=== PATIENT | female | born 1980 | race Caucasian/White ===

== ENCOUNTER 2016-07-08 20:46 | Emergency (ER) | payer OTHER ==
[2016-07-08] MEDS ORDERED: ALPRAZolam 0.25 MG TABLET PO ONE (21:10)
[2016-07-08] MEDS ORDERED: ALPRAZolam 0.25 MG TABLET ONE (21:15)
--- NOTE | 2016-07-08 21:22 | ERNOTE ---
Psychological HPI - General Chief Complaint: Psychiatric Problem Source: patient, police Exam Limitations: no limitations - Immun/Allergies/Home Medications Allergies/Adverse Reactions: Allergies acetaminophen [From Midrin] Allergy (Intermediate, Verified 07/08/16 20:56) GI upset codeine Allergy (Intermediate, Verified 07/08/16 20:56) rash dichloralphenazone [From Midrin] Allergy (Intermediate, Verified 07/08/16 20:56) GI upset diphenhydramine HCl [From Benadryl] Allergy (Intermediate, Verified 07/08/16 20: 56) Shortness of Breath isometheptene mucate [From Midrin] Allergy (Intermediate, Verified 07/08/16 20: 56) GI upset Home Medications: HOME MEDICATIONS NK [No Home Medication] 07/08/16 [Last Taken Unknown] - History of Present Illness Narrative: Patient has a history of paranoid schizophrenia and eloped form [facility] on May 02 2016. She was apprehended by the police today and is court ordered to be brought to [facility] for evaluation. Patient states that she hears voices of demons and angles (does not want to say what they are telling her). She denies any suicidal or homicidal ideation. While on the run she bought xanax off the street, has not been on any other psych medications. She also admits to using opiates and meth, the latter IV about two weeks, denies using THC or ETOH Time Seen by Provider: 07/08/16 20:59 Arrived by: police Review of Systems - Review of Systems Constitutional: Absent: fever Respiratory: Absent: shortness of breath Cardiology: Absent: chest pain Gastrointestinal/Abdominal: Absent: nausea, abdominal pain Neurological: Present: anxiety. Absent: headache - Patient's Past Medical History Patient History - Medical: Anxiety, Depression, Migraines, Other - paranoid schizophrenia Patient History - Cardiac/Respiratory: Asthma Patient History - Cancer: No Hx of Cancer Patient History - Surgical Procedures: No surgical history - Social History Living Situations: home Smoking Status: Current every day smoker Have you smoked in the past 12 months: Yes Alcohol Use: none Drug Use: benzodiazepine, cocaine, heroin, marijuana, meth, other Physical Exam - Physical Exam General Appearance: Present: wd/wn, alert, no apparent distress Eye Exam: Normal inspection: bilateral, PERRL: bilateral Respiratory: Present: no respiratory distress, normal breath sounds, lungs clear Cardiovascular/Chest: Present: regular rate, rhythm Gastrointestinal/Abdominal: Present: nontender, soft Extremity Exam: Present: other - no sign of injury Neurological Exam: Present: alert, oriented, other - avoids eye contact, Skin Exam: Present: normal color, warm/dry ED Progress - Results and Orders Patient's Lab Results:: I have reviewed the patient's lab results. - Vital Signs Patient's Vital Signs:: I have reviewed the patient's vital signs. Vital Signs: Vital Signs 07/08/16 20:51 Temperature 36.4 C L Pulse Rate 100 Respiratory 14 Rate Blood Pressure 123/86 O2 Sat by Pulse 98 Oximetry - Progress/Reassessment Chief Complaint: Psychiatric Problem Progress Note-Subjective: 07/08/16 21:55 patient anxious about lab draw, tolerated with coaching 07/09/16 06:27 patient resting, when talked to opens her eyes and asks for more xanax Departure Clinical Impression: Paranoid schizophrenia - Departure Disposition: Other health care facility Condition: Fair Referrals: Riley Virgen MD [Primary Care Provider] -
[2016-07-08 21:56] LABS: Hematocrit 39.5 % (37.0-47.0); Hemoglobin 12.9 gm/dL (12.5-16.0); Mean Cell Volume 91.4 fl (78-100); Mean Corpuscular Hemoglobin 29.9 pg (27-31); Mean Corpuscular Hgb Conc 32.7 g/dl (32-36); Mean Platelet Volume 10.4 fl (6.0-9.5); Neutrophil % 52.3 % (42-75.0); Platelet Count 143 K/mm3 (150-450); Red Blood Count 4.32 M/mm3 (4.2-5.4); Red Cell Distribution Width 12.3 % (11.5-14.0); White Blood Count 5.7 K/mm3 (4.0-10.5)
[2016-07-08 22:19] LABS: ALT 18 U/L (19-67); AST 10 U/L (0-48); Alkaline Phosphatase * 57 U/L (50-170); BUN/Creatinine Ratio 12.1 (9.0-21.6); Bilirubin, Total 0.4 mg/dL (0.0-1.1); Blood Urea Nitrogen 12 mg/dL (3-23); Ca. Corrected For Albumin 8.8 mg/dL (8.4-10.2); Calcium * 9.1 mg/dL (7.9-10.9); Carbon Dioxide 29.6 mmol/L (24-32.6); Chloride 105 mmol/L (97-106); Glucose * 80 mg/dL (70-110); Potassium 3.6 mmol/L (3.4-4.6); Salicylate Less than 2.8 mg/dL (2.8-20.0); Sodium 142 mmol/L (132-142); TSH * 1.033 uIU/mL (0.358-3.74); Total Protein 7.5 gm/dL (6.2-8.2)
[2016-07-09 00:13] LABS: Urine Bilirubin Negative (NEGATIVE); Urine Blood 25 /ul (NEGATIVE); Urine Ketone Negative (NEGATIVE); Urine Nitrite Negative (NEGATIVE); Urine Protein Negative (NEGATIVE); Urine Specific Gravity >=1.030 SP.GR. (1.005-1.010); Urine Urobilinogen Normal (NORMAL); Urine pH 5.5 pH (5.0-7.0)
[2016-07-09 00:21] LABS: Cocaine Ur Negative (NEGATIVE); Urine Barbiturate Negative (NEGATIVE); Urine Opiates Negative (NEGATIVE); Urine PCP Negative (NEGATIVE); Urine THC Negative (NEGATIVE)
[2016-07-09 00:27] LABS: Urine Benzodiazepines Positive (NEGATIVE)
[2016-07-09 00:28] LABS: Urine Appearance Clear; Urine Bacteria None Seen; Urine Color Yellow; Urine RBC 0-5 /hpf (0-5); Urine WBC 0-5 /hpf (0-5)
[2016-07-09] MEDS ORDERED: ALPRAZolam 0.25 MG TABLET PO ONE (05:46)
[2016-07-09] MEDS ORDERED: ALPRAZolam 0.25 MG TABLET ONE (05:47)
[2016-07-09 07:28] VITALS: BP 94/58
== END 2016-07-09 07:28 | disposition short-term general hospital (02) ==
LOC: ER 20:46
DX: F20.0 Paranoid schizophrenia (principal); F17.210 Nicotine dependence, cigarettes, uncomplicated
CPT/HCPCS: 36415; 80053; 81001; 84443; 84703; 85025; 99283; G0479; G0480; G0481

== ENCOUNTER 2016-11-08 21:12 | Emergency (ER) | payer OTHER ==
--- NOTE | 2016-11-08 22:03 | ERNOTE ---
<ValerieKennedi - Last Filed: 11/09/16 06:29> Psychological HPI - General Chief Complaint: Psychiatric Problem Source: Reports: patient Exam Limitations: Reports: clinical condition - pt is upset and not the best historian - Immun/Allergies/Home Medications Allergies/Adverse Reactions: Allergies acetaminophen [From Midrin] Allergy (Intermediate, Verified 07/08/16 20:56) GI upset codeine Allergy (Intermediate, Verified 07/08/16 20:56) rash dichloralphenazone [From Midrin] Allergy (Intermediate, Verified 07/08/16 20:56) GI upset diphenhydramine HCl [From Benadryl] Allergy (Intermediate, Verified 07/08/16 20: 56) Shortness of Breath isometheptene mucate [From Midrin] Allergy (Intermediate, Verified 07/08/16 20: 56) GI upset Home Medications: HOME MEDICATIONS ALPRAZolam [Xanax] 1 mg PO TID PRN 11/08/16 [Last Taken Unknown] hydrOXYzine PAMOATE [Vistaril] 50 mg PO Q4H PRN 11/08/16 [Last Taken Unknown] - History of Present Illness Narrative: pt is not forthcoming with information but what this examiner can deduct is that pt has been court committed based on Dr. Price for deterioration of mental status/health and needed inpatient care. Patient is also a habitual meth user, supposed to be on Xanax and vistarel and called her doctor stating that her meds had been stolen. Time Seen by Provider: 11/08/16 22:01 Review of Systems - Narrative Narrative: pt refuses to speak with me and ROS is impossible to get. She does state that she does not have pain anywhere. - Patient's Past Medical History Patient History - Medical: Anxiety, Depression, Migraines, Other Patient History - Cardiac/Respiratory: No pertinent hx Patient History - Cancer: No Hx of Cancer Patient History - Surgical Procedures: No surgical history Patient History - Other: None LMP (females 10-50): 3 weeks LMP (Calendar): 07/02/15 - Social History Living Situations: alone Abuse History: Hx of Substance Use, Hx -Substance Use Tx Psych History: Hx of Anxiety, Hx of Depression, Hx of Bipolar Disorder, Hx of Suicide Attempt Smoking Status: Current every day smoker Patient requests Smoking Cessation Consult: No Initiate information on Smoking Cessation: No Alcohol Use: none Drug Use: benzodiazepine, cocaine, heroin, marijuana, meth, other - Immunizations Immunizations Up to Date: No Hx Pneumococcal Vaccination: No History of Influenza Vaccine: No Physical Exam - Physical Exam General Appearance: Present: wd/wn, alert, no apparent distress - she does not allow me to examiner her further. ED Progress - Results and Orders Patient's Lab Results:: I have reviewed the patient's lab results. - pt's urine is positive for meth and benzo's. pt REFUSES to allow us to do blood test on her - Vital Signs Patient's Vital Signs:: I have reviewed the patient's vital signs. Vital Signs: Vital Signs 11/08/16 21:18 Temperature 37.8 C H Pulse Rate 112 H Respiratory 16 Rate Blood Pressure 138/49 O2 Sat by Pulse 99 Oximetry - Progress/Reassessment Chief Complaint: Psychiatric Problem - Transfer of Care Physician Sign Out: Kennedi Padilla Receiving Physician: Edis Galan Pending Results: Physician/consult arrival Expected Disposition: Transfer - placement Departure Clinical Impression: Drug abuse and dependence, Involuntary commitment - Departure Condition: Undetermined Additional Instructions: PT ELOPED FROM A COURT HOLD. POLICE ARE AWARE. <Edis Galan - Last Filed: 11/09/16 11:39> Psychological HPI - Date Date of Service: 11/09/16 ED Progress - Transfer of Care Additional Notes: THOUGH I INSTRUCTED THAT HER MOTHER NOT COME BACK INTO THE ER SHE HAS BEEN A PERSON MENTIONED IN THE PT'S. PAST ARGUMENTS/DRAMA/EVENTS. THE MOTHER CAME BACK INTO THE ER ANY WAY AFTER THE PT CALLED HER ON HER CELL PHONE THAT SHE WAS ALLOWED TO KEEP. WHEN THE MOTHER TRIED TO FORCE HER SELF INTO THE ER THE PT FORCED HER SELF OUT OF THE ER YELLING AND STRIKING OUT AT SECURITY. . THE SECURITY TRIED TO HAVE HER STAY BUT SHE RAN AWAY INTO THE PARKING LOT AND DISAPPEARED. THE POLICE WERE CALLED TO TRY TO FIND HER BUT WERE UNABLE.
--- OUTSIDE RECORDS SUMMARY | 2016-11-08 22:08 | XMS REPORT | Continuity of Care Document ---
:1980 Author Organization [facility] [place] [address] Care Team Providers Name Role Phone Provider, None Per Patient Primary Care Provider Unavailable Source Comments This disclosure is being made pursuant to the [employer] program and maynot contain all information available regarding this patient.[facility] Active Allergies and Adverse Reactions Allergen Noted Date Severity Reactions Comments Keshia 12/11/2015 High Anaphylaxis Current Medications Be aware that medications may not be up to date as of this document. Alwaysverify current medications with the patient. Prescription Sig. Disp. Refills Start Date End Date Status ALPRAZolam (XANAX) 1 MG Take 1 tablet by 60 tablet 1 01/05/2016 Active tablet mouth 2 (two) times daily. benztropine mesylate Inject 2 mLs into 10 mL 1 01/05/2016 Active (COGENTIN) 1 MG/ML the muscle every injection 6 (six) hours as needed (Dystonia). paliperidone (INVEGA) 6 Take 2 tablets by 60 tablet 1 01/05/2016 Active MG 24 hr tablet mouth daily with supper. traZODone (DESYREL) 100 Take 2 tablets by 60 tablet 1 01/05/2016 Active MG tablet mouth nightly as needed for Sleep. traZODone (DESYREL) 100 Take 1 tablet by 30 tablet 1 01/05/2016 Active MG tablet mouth daily as needed. Active Problems Problem Noted Date Schizophrenia, chronic with acute exacerbation (HCC) 12/12/2015 Social History Tobacco Use Types Packs/Day Years Used Date Never Assessed Last Filed Vital Signs Vital Sign Reading Time Taken Blood Pressure 88/67 01/06/2016 8:57 AM CDT Pulse 93 01/06/2016 8:57 AM CDT Temperature 34.4 C (93.9 F) 01/06/2016 8:57 AM CDT Respiratory Rate 16 01/06/2016 8:57 AM CDT Height 1.575 m (5' 2.01") 12/11/2015 10:00 PM CDT Weight 57.652 kg (127 lb 1.6 oz) 01/04/2016 4:00 PM CDT Body Mass Index 23.24 01/04/2016 4:00 PM CDT Oxygen Saturation - - Plan of Care Health Maintenance Due Date Last Done Comments Tetanus/Pertussis (1 - Tdap) 2001 Pap Smear 10/09/2003 Retired-INFLUENZA VACCINE 02/26/2016 Results from Last 3 Months Not on file
--- OUTSIDE RECORDS SUMMARY | 2016-11-08 22:08 | XMS REPORT | Continuity of Care Document ---
:1980 Author Organization [facility] ([facility]) Address [address] [place] [address] Phone [phone] Care Team Providers Name Role Phone Riley Virgen Primary Care Provider [phone] Source Comments This disclosure is being made pursuant to the Care Everywhere program, applicable federal and state laws, and may not contain all informaitonavailable regarding this patient.[facility] ([facility]) Active Allergies and Adverse Reactions Allergen Noted Date Severity Reactions Comments Diphenhydramine Hcl 12/22/2011 Anaphylactic Shock Current Medications Prescription Sig. Disp. Refills Start Date End Date Status vilazodone (VIIBRYD) 40 Take 40 mg by 30 Tab 1 12/22/2011 Active mg Tab mouth daily. Indications: Mood DO NOS QUEtiapine 300 mg tablet Take 2 Tabs by 60 Tab 1 12/22/2011 Active mouth at bedtime. Indications: Mood DO NOS haloperidol 10 mg tablet Take 1 Tab by 30 Tab 1 12/22/2011 Active mouth at bedtime. Indications: Mood DO NOS Active Problems Not on file Immunizations Name Dates Previously Given Next Due Influenza, unspecified 04/10/2007 Social History Tobacco Use Types Packs/Day Years Used Date Current Every Day Smoker Smokeless Tobacco: Never Used Last Filed Vital Signs Vital Sign Reading Time Taken Blood Pressure 111/79 12/22/2011 8:13 AM CDT Pulse 108 12/22/2011 8:13 AM CDT Temperature - - Respiratory Rate - - Height - - Weight 72.53 kg (159 lb 14.4 oz) 12/22/2011 8:13 AM CDT Body Mass Index - - Oxygen Saturation - - Plan of Care Health Maintenance Due Date Last Done Comments Hepatitis B Vaccine (1 of 3 - Primary Series) 1980 Tdap Vaccine 1993 Lipid Disorder Screening 2000 MMR Vaccine 2000 Td Vaccine 2000 Varicella Vaccine (1 of 2 - Adult - No Evidence of 2000 Immunity) Pneumococcal Vaccine (1 of 1 - PPSV23) 2001 Cervical Cancer Screening 2012 Influenza Vaccine: Seasonal (#1) 01/26/2016 04/10/2007 Results from Last 3 Months Not on file
[2016-11-09 00:25] LABS: Urine Bilirubin 1 mg/dl (NEGATIVE); Urine Blood Negative /ul (NEGATIVE); Urine Ketone Negative (NEGATIVE); Urine Nitrite Negative (NEGATIVE); Urine Protein 15 mg/dL (NEGATIVE); Urine Specific Gravity >=1.030 SP.GR. (1.005-1.010); Urine Urobilinogen Normal (NORMAL)
[2016-11-09 00:34] LABS: Urine Appearance Clear; Urine Color Orange; Urine RBC 0-5 /hpf (0-5); Urine WBC 0-5 /hpf (0-5)
[2016-11-09 00:35] LABS: Urine Bacteria 2+; Urine Mucus Moderate - 2+
[2016-11-09 00:36] LABS: Cocaine Ur Negative (NEGATIVE); Urine Barbiturate Negative (NEGATIVE); Urine Opiates Negative (NEGATIVE); Urine PCP Negative (NEGATIVE); Urine THC Negative (NEGATIVE)
[2016-11-09 00:39] LABS: Urine Benzodiazepines Positive (NEGATIVE)
[2016-11-09 03:55] VITALS: BP 94/53
[2016-11-12] MEDS ORDERED: ALPRAZolam 0.25 MG TABLET ONE (11:34)
== END 2016-11-10 | disposition left against medical advice (07) ==
LOC: ER 21:12
DX: F15.20 Other stimulant dependence, uncomplicated (principal); F11.20 Opioid dependence, uncomplicated; T40.2X5A Adverse effect of other opioids, initial encounter

== ENCOUNTER 2016-11-11 12:23 | Emergency (ER) | payer OTHER ==
--- OUTSIDE RECORDS SUMMARY | 2016-11-11 12:46 | XMS REPORT | Continuity of Care Document ---
:1980 Author Organization [facility] [employer] [place] [address] Care Team Providers Name Role Phone Provider, None Per Patient Primary Care Provider Unavailable Source Comments This disclosure is being made pursuant to the [employer] program and maynot contain all information available regarding this patient.[employer] [facility] Active Allergies and Adverse Reactions Allergen Noted [...]
--- OUTSIDE RECORDS SUMMARY | 2016-11-11 12:46 | XMS REPORT | Continuity of Care Document ---
:1980 Author Organization [facility] ([facility]) Address [address] [place] [address] Phone [phone] Care Team Providers Name Role Phone Riley Virgen Primary Care Provider [phone] Source Comments This disclosure is being made pursuant to the Care Everywhere program, applicable federal and state laws, and may not contain all informaitonavailable regarding this patient.[facility] ([facility]) Active Allergies and Adverse Reactions Allergen Noted [...]
--- NOTE | 2016-11-11 12:49 | ERNOTE ---
<Jasvir Veliz - Last Filed: 11/11/16 20:01> Psychological HPI - Date Date of Service: 11/11/16 - General Chief Complaint: Psychiatric Problem Source: Reports: past records, police, other - patient Exam Limitations: Reports: clinical condition - patient refuses to communicate in any manor, hadeloped from department on 11-09-[address] for placement and committal - Immun/Allergies/Home Medications Allergies/Adverse Reactions: Allergies acetaminophen [From Midrin] Allergy (Intermediate, Verified 07/08/16 20:56) GI upset codeine Allergy (Intermediate, Verified 07/08/16 20:56) rash dichloralphenazone [From Midrin] Allergy (Intermediate, Verified 07/08/16 20:56) GI upset diphenhydramine HCl [From Benadryl] Allergy (Intermediate, Verified 07/08/16 20: 56) Shortness of Breath isometheptene mucate [From Midrin] Allergy (Intermediate, Verified 07/08/16 20: 56) GI upset Home Medications: HOME MEDICATIONS ALPRAZolam [Xanax] 1 mg PO TID PRN 11/08/16 [Last Taken Unknown] hydrOXYzine PAMOATE [Vistaril] 50 mg PO Q4H PRN 11/08/16 [Last Taken Unknown] - History of Present Illness Time Seen by Provider: 11/11/16 12:39 Arrived by: Reports: police Onset/duration: Reports: gradual onset Intent: Reports: suicide Mechanism: Reports: incision Associated Symptoms: Reports: depressed, hallucinating, suicidal thoughts Prior Treament: Reports: treated by physician Review of Systems - Review of Systems Constitutional: Present: no symptoms reported EYE: Present: no symptoms reported ENT: Present: no symptoms reported Respiratory: Present: no symptoms reported Cardiology: Present: no symptoms reported Gastrointestinal/Abdominal: Present: no symptoms reported Genitourinary: Present: no symptoms reported Musculoskeletal: Present: no symptoms reported Skin: Present: no symptoms reported Neurological: Present: no symptoms reported Endocrine: Present: no symptoms reported Hematologic/Lymphatic: Present: no symptoms reported Psych: Present: no symptoms reported - Patient's Past Medical History Patient History - Medical: Anxiety, Depression, Migraines, Other Patient History - Cardiac/Respiratory: No pertinent hx Patient History - Cancer: No Hx of Cancer Patient History - Surgical Procedures: No surgical history Patient History - Other: None LMP (females 10-50): patient wont say LMP (Calendar): 07/02/15 - Family History Family History:: no family history of premature - Social History Living Situations: alone Abuse History: Hx of Substance Use, Hx -Substance Use Tx Psych History: Hx of Anxiety, Hx of Depression, Hx of Bipolar Disorder, Hx of Suicide Attempt Does anyone smoke in the home?: Yes Smoking Status: Current every day smoker Have you smoked in the past 12 months: Yes Alcohol Use: none Drug Use: benzodiazepine, cocaine, heroin, marijuana, meth, other - Immunizations Immunizations Up to Date: No Hx Pneumococcal Vaccination: No History of Influenza Vaccine: No Physical Exam - Physical Exam General Appearance: Present: severe distress, anxious, irritable Eye Exam: Normal inspection: bilateral, PERRL: bilateral, EOMI: bilateral Ears, Nose, Throat: Present: normal ENT inspection Neck: Present: normal inspection, nontender Respiratory: Present: no respiratory distress, normal breath sounds, no accessory muscle use, chest nontender Cardiovascular/Chest: Present: regular rate, rhythm, no murmur, normal peripheral pulses Gastrointestinal/Abdominal: Present: normal bowel sounds, nontender, nondistended, soft, no organomegaly Rectal Exam: Present: deferred Back Exam: Present: normal inspection, normal range of motion, no CVA tenderness , no vertebral tenderness Extremity Exam: Present: normal inspection, normal range of motion, no edema Neurological Exam: Present: disoriented to situation, other - patient refuses exam ED Progress - Progress/Reassessment Chief Complaint: Psychiatric Problem - Transfer of Care Physician Sign Out: Jasvir Veliz Receiving Physician: Derian Nicole Departure Clinical Impression: Bipolar 1 disorder with moderate sia - Departure <Derian Nicole - Last Filed: 11/12/16 08:08> ED Progress - Progress/Reassessment Progress Note-Subjective: 11/12/16 08:03 Pt slept through the night, no problems encountered. - Transfer of Care Physician Sign Out: Derian Nicole Receiving Physician: Jasvir Veliz Expected Disposition: Transfer
[2016-11-11 16:29] LABS: Hematocrit 37.4 % (37.0-47.0); Mean Cell Volume 89.7 fl (78-100); Mean Corpuscular Hemoglobin 28.8 pg (27-31); Mean Corpuscular Hgb Conc 32.1 g/dl (32-36); Mean Platelet Volume 9.4 fl (6.0-9.5); Neutrophil % 55.8 % (42-75.0); Platelet Count 183 K/mm3 (150-450); Red Blood Count 4.17 M/mm3 (4.2-5.4); Red Cell Distribution Width 13.2 % (11.5-14.0); White Blood Count 5.4 K/mm3 (4.0-10.5)
[2016-11-11 16:53] LABS: ALT 37 U/L (19-67); AST 28 U/L (0-48); Albumin * 3.8 gm/dl (3.4-5.0); Alkaline Phosphatase * 59 U/L (50-170); Anion Gap 8.8 mmol/L (6.8-13.8); BUN/Creatinine Ratio 14.7 (9.0-21.6); Bilirubin, Total 0.8 mg/dL (0.0-1.1); Blood Urea Nitrogen 15 mg/dL (3-23); Ca. Corrected For Albumin 8.6 mg/dL (8.4-10.2); Calcium * 8.8 mg/dL (7.9-10.9); Carbon Dioxide 31.7 mmol/L (24-32.6); Chloride 106 mmol/L (97-106); Glucose * 73 mg/dL (70-110); Potassium 3.5 mmol/L (3.4-4.6); Salicylate Less than 2.8 mg/dL (2.8-20.0); Sodium 143 mmol/L (132-142); Total Protein 7.5 gm/dL (6.2-8.2)
[2016-11-11] MEDS ORDERED: LORazepam 1 MG TABLET PO ONE (17:09)
[2016-11-11] MEDS ORDERED: LORazepam 1 MG TABLET ONE (17:21)
[2016-11-12] MEDS ORDERED: ALPRAZolam 0.25 MG TABLET PO ONE ×3 (11:27→22:04)
[2016-11-12 15:40] LABS: Urine Bilirubin Negative (NEGATIVE); Urine Ketone Negative (NEGATIVE); Urine Nitrite Negative (NEGATIVE); Urine Protein Negative (NEGATIVE); Urine Specific Gravity 1.025 SP.GR. (1.005-1.010); Urine Urobilinogen Normal (NORMAL)
[2016-11-12] MEDS ORDERED: ALPRAZolam 0.25 MG TABLET ONE ×2 (15:47→22:08)
[2016-11-12 15:50] LABS: Urine Appearance Clear; Urine Bacteria None Seen; Urine Blood 5 /ul (NEGATIVE); Urine Color Yellow; Urine RBC 0-5 /hpf (0-5); Urine WBC 0-5 /hpf (0-5)
[2016-11-12 15:53] LABS: Cocaine Ur Negative (NEGATIVE); Urine Barbiturate Negative (NEGATIVE); Urine Opiates Negative (NEGATIVE); Urine PCP Negative (NEGATIVE); Urine THC Negative (NEGATIVE)
[2016-11-12 15:54] LABS: Urine Benzodiazepines Positive (NEGATIVE)
[2016-11-13] MEDS ORDERED: ZIPRASIDONE HCL 20 MG CAPSULE PO ONE (07:22)
[2016-11-13] MEDS ORDERED: ALPRAZolam 0.25 MG TABLET PO ONE (12:31)
[2016-11-13] MEDS ORDERED: ALPRAZolam 0.25 MG TABLET ONE ×2 (12:35→17:32)
[2016-11-13] MEDS ORDERED: ALPRAZolam 0.25 MG TABLET PO PRN ×2 (15:11→16:33)
[2016-11-13] MEDS ORDERED: ALPRAZOLAM 1 MG PO PRN (16:59)
[2016-11-13] MEDS: ALPRAZolam 1 MG TABLET PO PRN (17:35)
[2016-11-14] MEDS: ALPRAZolam 1 MG TABLET PO PRN ×2 (02:20→10:42)
[2016-11-14] MEDS ORDERED: ALPRAZolam 0.25 MG TABLET ONE (10:39)
[2016-11-14 18:26] VITALS: BP 97/67
== END 2016-11-14 16:40 | disposition short-term general hospital (02) ==
LOC: ER 12:23
DX: F31.12 Bipolar disorder, current episode manic without psychotic features, moderate (principal); Z72.0 Tobacco use
CPT/HCPCS: 36415; 80053; 80307; 81001; 84443; 84703; 85025; 87086; 93005; 99285; G0480; G0481